=== PATIENT | male | born 1980 | race Caucasian/White ===

== ENCOUNTER 2019-04-10 01:27 | Emergency (ER) | payer MEDICAID ==
[~2019-04-10] VITALS: Ht 175.3 cm; Wt 102.3 kg
[~2019-04-10 01:27] MED LIST: CLIN150C8 PO; HYDR-4383 PO; NO HOME MEDS
[2019-04-10] MEDS ORDERED: naloxone 2mg/2ml inj ONE (01:31)
[2019-04-10] MEDS ORDERED: naloxone 2mg/2ml inj IM STA (01:50)
[2019-04-10] MEDS ORDERED: naloxone 2mg/2ml inj 2 MG in normal saline 500ml IV soln 498 ML IV SCH (02:10)
[2019-04-10 02:24] LABS: BASOPHILS % (AUTO) 0.6 % (0-1); EOSINOPHILS # (AUTO) 0.1 X10'3 (0-0.9); EOSINOPHILS % (AUTO) 1.3 % (0-6); HEMATOCRIT 42.8 % (42.0-52.0); HEMOGLOBIN 14.6 g/dl (14.0-17.9); LYMPHOCYTES # (AUTO) 1.6 X10'3 (1.1-4.8); LYMPHOCYTES % (AUTO) 18.3 % (21-51); MEAN CORPUSCULAR HEMOGLOBIN 30.7 PG (27.0-31.0); MEAN CORPUSCULAR HGB CONC 34.1 g/dL (33.0-36.5); MEAN PLATELET VOLUME 7.6 FL (7.4-10.4); MONOCYTES # (AUTO) 0.8 X10'3 (0-0.9); MONOCYTES % (AUTO) 9.7 % (2-12); NEUTROPHILS # (AUTO) 6.1 X10'3 (1.8-7.7); NEUTROPHILS % (AUTO) 70.1 % (42-75); PLATELET COUNT 254 X10'3 (140-440); RED BLOOD COUNT 4.76 X10'6 (4.70-6.10); RED CELL DISTRIBUTION WIDTH 13.7 % (11.5-14.5); WHITE BLOOD COUNT 8.7 X10'3 (4.5-11.0)
[2019-04-10 02:41] LABS: ALBUMIN 3.9 G/DL (3.4-5.0); ALBUMIN/GLOBULIN RATIO 1.1 (1.1-1.5); ALKALINE PHOSPHATASE 90 IU/L (46-116); ANION GAP 10 (8-16); ASPARTATE AMINO TRANSFERASE 705 U/L (10-37); BILIRUBIN,TOTAL 1.2 MG/DL (0.1-1.0); BLOOD UREA NITROGEN 25 MG/DL (7-18); BUN/CREATININE RATIO 18.9 (5.4-32.0); CALCIUM 7.8 MG/DL (8.5-10.1); CHLORIDE 108 MMOL/L (99-107); CREATININE 1.32 MG/DL (0.60-1.10); GLUCOSE 140 MG/DL (70-104); POTASSIUM 3.3 MMOL/L (3.5-5.1); SODIUM 146 MMOL/L (135-145); TOTAL CARBON DIOXIDE 28.4 MMOL/L (24-32); TOTAL PROTEIN 7.4 G/DL (6.4-8.2); eGFR 61 ML/MIN
[2019-04-10 02:42] LABS: ALANINE AMINOTRANSFERASE 1544 U/L (12-78)
[2019-04-10] MEDS ORDERED: pantoprazole 40 MG vial IV ONE (02:50)
[2019-04-10] MEDS ORDERED: normal saline 1000ML IV soln IVB ONE (02:50)
[2019-04-10] MEDS ORDERED: ondansetron/PF 4mg/2ml inj IV ONE (02:50)
[2019-04-10 03:01] LABS: ETHANOL 0.043 GM/DL (0.0-0.010); LIPASE 153 U/L (73-393)
--- NOTE | 2019-04-10 03:21 | NUR ---
NARCAN GTT CONTINUES INFUSING. PT FALLING ASLEEP REGULARLY BUT EASILY AWAKENS TO VOICE. FATHER AT BEDSIDE. SATS 92% ON 5 LITERS NC. 3 LITERS NS BOLUS ORDERED AND CURRENTLY INFUSING. PT GIVEN ADTL WARM BLANKETS.
[2019-04-10 04:00] LABS: ABG BASE EXCESS -4.6 mmol/L (-2.0-3.0); ABG HCO3 22.8 mmol/L (22.0-26.0); ABG OXYGEN SATURATION 88.5 % (95-98); ABG PCO2 (T) 51.2 mmHg (35.0-45.0); ABG PH (T) 7.267 (7.350-7.450); ABG PO2 (T) 61.6 mmHg (83-108); FCOHb 1.6 % (0.5-1.5); FLOW 5 L/min; FO2Hb 87.1 % (94-100); TOTAL HEMOGLOBIN 14.2 G/dl (14.0-17.9)
[2019-04-10 04:03] LABS: URINE AMPHETAMINE SCREEN POSITIVE (Neg); URINE BARBITUATE SCREEN NEGATIVE (Neg); URINE BENZODIAZEPINES SCREEN NEGATIVE (Neg); URINE CANNABINOID SCREEN POSITIVE (Neg); URINE COCAINE SCREEN NEGATIVE (Neg); URINE METHADONE SCREEN NEGATIVE (Neg); URINE OPIATE SCREEN POSITIVE (Neg); URINE PHENCYCLIDINE SCREEN NEGATIVE (Neg)
[2019-04-10] MEDS ORDERED: iohexol 350MG/ML 100ml bottle IV ONE (04:41)
[2019-04-10] MEDS ORDERED: azithromycin/NS 500mg/250ml 250 ML IV ONE (06:10)
[2019-04-10] MEDS ORDERED: CefTRIAXone 2gm/D5W 50ml 50 ML IV ONE (06:10)
[2019-04-10 08:01] LABS: ABG BASE EXCESS -5.4 mmol/L (-2.0-3.0); ABG HCO3 20.5 mmol/L (22.0-26.0); ABG OXYGEN SATURATION 83.5 % (95-98); ABG PCO2 (T) 41.5 mmHg (35.0-45.0); ABG PH (T) 7.312 (7.350-7.450); ABG PO2 (T) 48.6 mmHg (83-108); ALLEN'S TEST Positive; FMetHb 0.1 % (0.3-1.12); FO2Hb 82.6 % (94-100); TOTAL HEMOGLOBIN 15.6 G/dl (14.0-17.9)
[2019-04-10] MEDS ORDERED: FLU VACC QS2019-20 36MOS UP/PF 60 MCG/0.5 ML SYRINGE IMVAC ONE (08:10)
[2019-04-10] MEDS ORDERED: METR-159 PO (10:17)
[2019-04-10] MEDS ORDERED: AMOX500C2 PO (10:17)
[2019-04-10 10:41] VITALS: BP 131/61
[2019-04-11] MEDS ORDERED: FLU VACC QS2019-20 36MOS UP/PF 60 MCG/0.5 ML SYRINGE IMVAC ONE (08:10)
== END 2019-04-10 10:46 | disposition home or self-care (01) ==
LOC: ER 01:28
DX: J18.9 Pneumonia, unspecified organism (principal); F19.10 Other psychoactive substance abuse, uncomplicated; R09.02 Hypoxemia; R41.82 Altered mental status, unspecified; R10.13 Epigastric pain; F12.90 Cannabis use, unspecified, uncomplicated; F17.200 Nicotine dependence, unspecified, uncomplicated; Z56.0 Unemployment, unspecified
CPT/HCPCS: 36415; 36600; 71045; 71275; 80053; 80305; 80320; 82803; 83605; 83690; 84145; 84484; 85018; 85025; 87040; 87081; 93005; 94660; 96365; 96367; 96375; 96376; 99284; C9113; J0456; J0696; J2310; J2405; J7030; J7040; Q9967; Q2037

== ENCOUNTER 2019-05-09 00:53 | Emergency (ER) | payer MEDICAID, OTHER ==
[~2019-05-09] VITALS: Ht 175.3 cm; Wt 97.0 kg
[~2019-05-09 00:53] MED LIST changes: +AMOX500C2 PO; -CLIN150C8 PO; -HYDR-4383 PO
[2019-05-09 01:00] VITALS: BP 163/82
[2019-05-09] MEDS ORDERED: SULF1TAB49 PO (02:09)
[2019-05-09] MEDS ORDERED: sulfamethoxazole/trimethoprim DS (800/160mg) tablet PO ONE (02:10)
== END 2019-05-09 02:24 | disposition home or self-care (01) ==
LOC: ER 00:54
DX: L03.313 Cellulitis of chest wall (principal); F12.90 Cannabis use, unspecified, uncomplicated; F17.200 Nicotine dependence, unspecified, uncomplicated; Z79.2 Long term (current) use of antibiotics; Z56.0 Unemployment, unspecified
CPT/HCPCS: 87070; 87077; 87186; 99283

== ENCOUNTER 2019-06-19 22:17 | Emergency (ER) | payer MEDICAID ==
[~2019-06-19] VITALS: Ht 175.3 cm; Wt 95.5 kg
[~2019-06-19 22:17] MED LIST changes: -AMOX500C2 PO
[2019-06-19 22:37] VITALS: BP 159/80
[2019-06-19] MEDS ORDERED: MUPI22OI30 TOP (23:35)
[2019-06-19] MEDS ORDERED: DOXY100C76 PO (23:35)
== END 2019-06-19 23:55 | disposition home or self-care (01) ==
LOC: ER 22:18
DX: J32.8 Other chronic sinusitis (principal); F12.90 Cannabis use, unspecified, uncomplicated; Z56.0 Unemployment, unspecified
CPT/HCPCS: 99283

== ENCOUNTER 2019-09-22 08:29 | Emergency (ER) | payer MEDICAID ==
[~2019-09-22] VITALS: Ht 175.3 cm; Wt 98.0 kg
[2019-09-22] MEDS ORDERED: normal saline 1000ML IV soln IVB ONE (08:35)
--- NOTE | 2019-09-22 08:38 | NUR ---
Dr Juárezfs in at bedside for initial assessment. IO pulled from [facility].
--- NOTE | 2019-09-22 09:39 | NUR ---
Dr. Mckee stated hold on IV. Ok to give PO fluid and food.
[2019-09-22 11:11] VITALS: BP 165/110
== END 2019-09-22 11:14 | disposition home or self-care (01) ==
LOC: ER 08:29
DX: T40.1X1A Poisoning by heroin, accidental (unintentional), initial encounter (principal); F17.210 Nicotine dependence, cigarettes, uncomplicated; F12.90 Cannabis use, unspecified, uncomplicated; F11.90 Opioid use, unspecified, uncomplicated; Z72.89 Other problems related to lifestyle; Z86.14 Personal history of Methicillin resistant Staphylococcus aureus infection; Z59.0 Homelessness
CPT/HCPCS: 93005; 99283

== ENCOUNTER 2020-04-11 21:31 | Emergency (ER) | payer MEDICAID ==
[~2020-04-11] VITALS: Ht 180.3 cm; Wt 100.0 kg
[2020-04-11 21:34] VITALS: BP 125/89
[2020-04-11] MEDS ORDERED: ACYC-202 PO (23:14)
[2020-04-11] MEDS ORDERED: CefTRIAXone 250MG IM Kit w/LIDOcaine IM ONE (23:15)
[2020-04-11] MEDS ORDERED: azithromycin 250mg tablet PO ONE (23:15)
== END 2020-04-11 23:53 | disposition home or self-care (01) ==
LOC: ER 21:32
DX: A64 Unspecified sexually transmitted disease (principal); N48.89 Other specified disorders of penis; F12.90 Cannabis use, unspecified, uncomplicated; F11.90 Opioid use, unspecified, uncomplicated; Z86.14 Personal history of Methicillin resistant Staphylococcus aureus infection; Z72.89 Other problems related to lifestyle; Z56.0 Unemployment, unspecified; Z79.2 Long term (current) use of antibiotics
CPT/HCPCS: 96372; 99283; J0696

== ENCOUNTER 2020-08-06 12:25 | Emergency (ER) | payer MEDICAID ==
[~2020-08-06] VITALS: Ht 175.3 cm; Wt 100.0 kg
[2020-08-06 12:45] VITALS: BP 102/67
[2020-08-06] MEDS ORDERED: HYDROcodone/acetaminophen 10/325mg tab PO ONE (14:30)
[2020-08-06 15:02] LABS: BASOPHILS % (AUTO) 0.5 % (0-1); EOSINOPHILS # (AUTO) 0.2 X10'3 (0-0.9); EOSINOPHILS % (AUTO) 2.7 % (0-6); HEMATOCRIT 36.3 % (42.0-52.0); LYMPHOCYTES # (AUTO) 2.3 X10'3 (1.1-4.8); LYMPHOCYTES % (AUTO) 26.4 % (21-51); MEAN CORPUSCULAR HEMOGLOBIN 28.5 PG (27.0-31.0); MEAN CORPUSCULAR VOLUME 86.4 FL (78-98); MEAN PLATELET VOLUME 7.8 FL (7.4-10.4); MONOCYTES # (AUTO) 1.8 X10'3 (0-0.9); MONOCYTES % (AUTO) 20.3 % (2-12); NEUTROPHILS # (AUTO) 4.4 X10'3 (1.8-7.7); NEUTROPHILS % (AUTO) 50.1 % (42-75); PLATELET COUNT 236 X10'3 (140-440); RED BLOOD COUNT 4.21 X10'6 (4.70-6.10); RED CELL DISTRIBUTION WIDTH 17.6 % (11.5-14.5); WHITE BLOOD COUNT 8.8 X10'3 (4.5-11.0)
[2020-08-06 15:11] LABS: ALANINE AMINOTRANSFERASE 39 U/L (12-78); ALBUMIN 2.9 G/DL (3.4-5.0); ALBUMIN/GLOBULIN RATIO 0.5 (1.1-1.5); ALKALINE PHOSPHATASE 202 IU/L (46-116); ANION GAP 7 (8-16); ASPARTATE AMINO TRANSFERASE 40 U/L (10-37); BILIRUBIN,TOTAL 0.5 MG/DL (0.1-1.0); BLOOD UREA NITROGEN 18 MG/DL (7-18); BUN/CREATININE RATIO 17.8 (5.4-32.0); CALCIUM 8.5 MG/DL (8.5-10.1); CHLORIDE 103 MMOL/L (99-107); CREATININE 1.01 MG/DL (0.60-1.10); POTASSIUM 4.8 MMOL/L (3.5-5.1); SODIUM 139 MMOL/L (135-145); TOTAL CARBON DIOXIDE 28.7 MMOL/L (24-32); TOTAL PROTEIN 9.1 G/DL (6.4-8.2); eGFR 82 ML/MIN
[2020-08-06 15:12] LABS: GLUCOSE 102 MG/DL (70-104)
[2020-08-06] MEDS ORDERED: dexamethasone sod phosphate 10mg/ml inj IV STA (16:33)
[2020-08-06 17:35] LABS: ANISOCYTOSIS 1+; PLATELET ESTIMATE NORMAL; TOTAL CELLS COUNTED 100
[2020-08-06 17:40] LABS: STOMATOCYTES 1+
[2020-08-06] MEDS ORDERED: HYDR-3965 PO ×2 (18:17→18:20)
[2020-08-06] MEDS ORDERED: PRED20TA PO (18:17)
--- NOTE | 2020-08-06 18:51 | NUR ---
pt has orders for decadron iv, but no iv in place and reportedly is difficult iv placement. Dr. Smith updated of this and rodjake changed to IM. Pts' girlfriend Arielle at bedside for DC instructions and is pts transportation home.
--- NOTE | 2020-08-10 10:04 | NUR ---
pt. is posiive for RPR. called home number that is disconnected. called mariana the II left message for pt. to call us. pt. needs to have pcn g 2.4 millions units IM. pt. nees to have this for a total of 3 doses 1 week apart.
--- NOTE | 2020-08-10 10:49 | NUR ---
pt. called back. i told him he was positive for syphillis. pt. was informed that his partner if he has one also needs to be treated. pt. is comming back today to get the first of 3 doses of pcn g shot im.
== END 2020-08-06 18:54 | disposition home or self-care (01) ==
LOC: ER 12:25
DX: S50.11XA Contusion of right forearm, initial encounter (principal); I77.6 Arteritis, unspecified; F17.200 Nicotine dependence, unspecified, uncomplicated; F12.90 Cannabis use, unspecified, uncomplicated; Z86.14 Personal history of Methicillin resistant Staphylococcus aureus infection; Z72.89 Other problems related to lifestyle; Z56.0 Unemployment, unspecified; Z98.890 Other specified postprocedural states; Z79.899 Other long term (current) drug therapy
CPT/HCPCS: 29125; 36415; 70450; 73110; 80053; 83605; 85007; 85025; 85651; 86140; 86592; 96374; 99285; J1100

== ENCOUNTER 2020-08-10 16:05 | Emergency (ER) | payer MEDICAID ==
[~2020-08-10] VITALS: Ht 177.8 cm; Wt 100.0 kg
[~2020-08-10 16:05] MED LIST changes: +HYDR-3965 PO; +PRED20TA PO
[2020-08-10 16:19] VITALS: BP 149/57
--- NOTE | 2020-08-10 16:54 | NUR ---
PATIENT WAS CALLED TO RETURN TO ER FOR POSITIVE RPR RESULT THAT WILL REQUIRE ANTIBIOTIC ADMINISTRATION.
[2020-08-10] MEDS ORDERED: ibuprofen tablet 400 MG TABLET PO ONE (17:30)
[2020-08-10] MEDS ORDERED: PENICILLIN G BENZATHINE 2,400,000 UNIT/4 ML SYRINGE IM ONE (17:50)
== END 2020-08-10 18:20 | disposition home or self-care (01) ==
LOC: ER 16:06
DX: A53.9 Syphilis, unspecified (principal); G43.909 Migraine, unspecified, not intractable, without status migrainosus; F12.90 Cannabis use, unspecified, uncomplicated; F11.90 Opioid use, unspecified, uncomplicated; Z86.14 Personal history of Methicillin resistant Staphylococcus aureus infection; Z72.89 Other problems related to lifestyle; Z98.890 Other specified postprocedural states; Z56.0 Unemployment, unspecified; Z79.899 Other long term (current) drug therapy
CPT/HCPCS: 36415; 86592; 96372; 99283; J0561

== ENCOUNTER 2020-12-09 13:13 | Emergency (ER) | payer MEDICAID ==
[~2020-12-09] VITALS: Ht 177.8 cm; Wt 102.3 kg
[~2020-12-09 13:13] MED LIST changes: -HYDR-3965 PO; -PRED20TA PO
[2020-12-09] MEDS ORDERED: PRED20TA PO (13:40)
[2020-12-09] MEDS ORDERED: ALBU6.7H9 INH (13:40)
[2020-12-09 14:07] VITALS: BP 136/73
== END 2020-12-09 14:46 | disposition home or self-care (01) ==
LOC: ER 13:14
DX: U07.1 COVID-19 (principal); J06.9 Acute upper respiratory infection, unspecified; R06.02 Shortness of breath; R51.9 Headache, unspecified; R05 Cough; F12.90 Cannabis use, unspecified, uncomplicated; F11.90 Opioid use, unspecified, uncomplicated; Z86.14 Personal history of Methicillin resistant Staphylococcus aureus infection; Z98.890 Other specified postprocedural states; Z72.89 Other problems related to lifestyle; Z56.0 Unemployment, unspecified; Z79.899 Other long term (current) drug therapy
CPT/HCPCS: 36415; 99283; U0003; U0005

== ENCOUNTER 2021-02-13 11:04 | Emergency (ER) | payer MEDICAID ==
[~2021-02-13] VITALS: Ht 177.8 cm; Wt 104.5 kg
[~2021-02-13 11:04] MED LIST changes: +ALBU6.7H9 INH
[2021-02-13 11:12] VITALS: BP 118/76
[2021-02-13] MEDS ORDERED: CEPH-585 PO (11:46)
[2021-02-13] MEDS ORDERED: HYDR-3972 PO (11:46)
== END 2021-02-13 13:38 | disposition home or self-care (01) ==
LOC: ER 11:05
DX: S42.001A Fracture of unspecified part of right clavicle, initial encounter for closed fracture (principal); M79.5 Residual foreign body in soft tissue; R07.81 Pleurodynia; F12.90 Cannabis use, unspecified, uncomplicated; F11.90 Opioid use, unspecified, uncomplicated; Z87.81 Personal history of (healed) traumatic fracture; Z86.14 Personal history of Methicillin resistant Staphylococcus aureus infection; Z56.0 Unemployment, unspecified; V87.8XXA Person injured in other specified noncollision transport accidents involving motor vehicle (traffic), initial encounter; Y93.89 Activity, other specified; Y92.89 Other specified places as the place of occurrence of the external cause; Y99.8 Other external cause status
CPT/HCPCS: 99283

== ENCOUNTER 2021-02-15 19:35 | Emergency (ER) | payer MEDICAID ==
[~2021-02-15] VITALS: Ht 177.8 cm; Wt 104.5 kg
[~2021-02-15 19:35] MED LIST changes: +CEPH-585 PO; +HYDR-3972 PO
[2021-02-15 19:44] VITALS: BP 136/88
== END 2021-02-15 23:19 | disposition left against medical advice (07) ==
LOC: ER 19:35
DX: R07.81 Pleurodynia (principal); Z53.21 Procedure and treatment not carried out due to patient leaving prior to being seen by health care provider

== ENCOUNTER 2022-03-27 15:04 | Emergency (ER) | payer MEDICAID ==
[~2022-03-27] VITALS: Ht 177.8 cm; Wt 104.0 kg
[~2022-03-27 15:04] MED LIST changes: +ALBU6.7H14 INH; -ALBU6.7H9 INH; -CEPH-585 PO; -HYDR-3972 PO
[2022-03-27 15:39] VITALS: BP 143/86
[2022-03-27] MEDS ORDERED: ondansetron 4mg rapidly disintigrating tab PO ONE (16:25)
[2022-03-27] MEDS ORDERED: ketorolac trometh. 30mg/ml inj. IM ONE (16:25)
[2022-03-27] MEDS ORDERED: HYDROcodone/acetaminophen 5mg/325mg tablet PO ONE (16:25)
[2022-03-27] MEDS ORDERED: HYDR-3965 PO (16:55)
[2022-03-27] MEDS ORDERED: ONDA4TAB12 PO (16:55)
== END 2022-03-27 17:08 | disposition home or self-care (01) ==
LOC: ER 15:06
DX: M25.521 Pain in right elbow (principal); F12.90 Cannabis use, unspecified, uncomplicated; F11.90 Opioid use, unspecified, uncomplicated; Z86.14 Personal history of Methicillin resistant Staphylococcus aureus infection; Z72.89 Other problems related to lifestyle; Z98.890 Other specified postprocedural states; Z56.0 Unemployment, unspecified; Z79.899 Other long term (current) drug therapy
CPT/HCPCS: 73080; 96372; 99283; J1885

== ENCOUNTER 2023-07-17 17:27 | Emergency (ER) | payer MEDICAID ==
[~2023-07-17] VITALS: Ht 177.8 cm; Wt 108.4 kg
[~2023-07-17 17:27] MED LIST changes: +ONDA4TAB12 PO
[2023-07-17 17:32] VITALS: BP 168/140; PULSE 102; RESP 16; TEMP 98.2; O2SAT 95
[2023-07-17] MEDS: sulfamethoxazole/trimethoprim DS (800/160mg) tablet PO ONE (18:30)
[2023-07-17] MEDS: ibuprofen tablet 400 MG TABLET PO ONE (18:30)
[2023-07-17] MEDS ORDERED: IBUP-1984 PO (18:34)
[2023-07-17] MEDS ORDERED: SULF1TAB45 PO (18:34)
== END 2023-07-17 19:08 | disposition home or self-care (01) ==
LOC: ER 17:28
DX: S61.230A Puncture wound without foreign body of right index finger without damage to nail, initial encounter (principal); F12.90 Cannabis use, unspecified, uncomplicated; Z79.899 Other long term (current) drug therapy; Z79.2 Long term (current) use of antibiotics; X58.XXXA Exposure to other specified factors, initial encounter; Y93.89 Activity, other specified; Y92.89 Other specified places as the place of occurrence of the external cause; Y99.8 Other external cause status
CPT/HCPCS: 73140; 99283

== ENCOUNTER 2023-10-28 00:35 | Emergency (ER) | payer MEDICAID ==
[~2023-10-28] VITALS: Ht 177.8 cm; Wt 115.0 kg
[~2023-10-28 00:35] MED LIST changes: +ONDA-243 PO; -ONDA4TAB12 PO
[2023-10-28 00:38] VITALS: TEMP 98.9
[2023-10-28] MEDS ORDERED: ONDA-245 PO (01:27)
[2023-10-28] MEDS ORDERED: DOXY-356 PO (01:27)
[2023-10-28] MEDS ORDERED: CEPH-585 PO (01:27)
[2023-10-28] MEDS: ibuprofen tablet 400 MG TABLET PO ONE (01:31)
[2023-10-28] MEDS: DOXYCYCLINE 100MG CAPSULE PO STA (01:31)
[2023-10-28] MEDS: cephalexin 250mg capsule PO ONE (01:32)
[2023-10-28] MEDS: acetaminophen 325mg tablet PO ONE (01:32)
[2023-10-28] MEDS: ondansetron 4mg rapidly disintigrating tab PO ONE (01:33)
[2023-10-28] MEDS: ceFAZolin 1gm IM kit IM ONE (01:34)
[2023-10-28 01:51] VITALS: BP 109/93; PULSE 97; RESP 18; O2SAT 99
== END 2023-10-28 01:53 | disposition home or self-care (01) ==
LOC: ER 00:35
DX: L03.115 Cellulitis of right lower limb (principal); F12.90 Cannabis use, unspecified, uncomplicated; F11.90 Opioid use, unspecified, uncomplicated; Z72.89 Other problems related to lifestyle; Z56.0 Unemployment, unspecified; Z98.890 Other specified postprocedural states
CPT/HCPCS: 96372; 99284; J0690

== ENCOUNTER 2025-02-02 22:25 | Emergency (ER) | payer MEDICAID ==
[~2025-02-02] VITALS: Ht 177.8 cm; Wt 113.6 kg
[~2025-02-02 22:25] MED LIST changes: +ONDA-245 PO
--- NOTE | 2025-02-02 22:40 | Physician Documentation ---
History of Present Illness ~ Chief Complaint: Finger pain Stated Complaint: FINGER PAIN Time Seen by MD: 22:35 Primary Medical Doctor: None HPI This is a 44-year-old gentleman who is currently on doxycycline for management of syphilis presents for evaluation of pain, swelling of the 3rd digit of his left hand. It has been present there for two days. He has been able to squeeze a small amount of pus out of it. No particular trigger, denies any specific trauma. Denies any foreign object introduction. No palliating or aggravating factors. Denies any fever or chills. Able to range the finger. Tetanus within 5 years: Yes (2016) Medication Reconciliation Allergies: Coded Allergies: No Known Allergies (Unverified , 10/28/23) Scheduled Albuterol Sulfate (Proventil Hfa), 2 PUFFS INH Q6H ONDANSETRON ODT 4mg tablet (Ondansetron Odt), 1 TABLET PO Q6H Ondansetron 8mg ODT (Ondansetron Odt), 1 TAB PO Q6H Miscellaneous Medications Home Med List (No Home Medications), (Reported) Past Medical History Past Medical History: Extremity Fracture, MRSA Abscess Past Surgical History: orthopedic surgeries Alcohol Use: Occasionally Drug Use: marijuana, heroin Lives In: Home Occupation: unemployed Review of Systems ROS 10 point review of systems was performed and unless noted above in HPI is negative for acute process/complaint. Physical Exam Vital Signs: Temperature: 97.2, Source: Temporal, Heart Rate: 111, Respiratory Rate: 20, BP: 145/100, Pulse Oximetry: 99, Weight: 113.600 Oxygen Flow Rate: 0 Physical Exam Physical examination: GENERAL: Awake, alert, oriented, GCS 15, no apparent distress, non-toxic appearing, answers questions, follows commands appropriately. HEENT: Atraumatic, normocephalic, pupils equal, extraocular muscles intact Active gross movements, sclerae anicteric, mucus membranes moist, no stridor. NECK: Midline, no JVD CARDIOVASCULAR: Good skin perfusion without evidence of pallor, mottling. PULMONARY: Nonlabored, symmetric chest rise, no audible wheezing, no accessory muscle use, no respiratory distress, speaking in full sentences. GASTROINTESTINAL: Not distended. NEUROLOGIC: Lucid with normal mental status. Normal facial symmetry. Moves all extremities symmetrically and with purpose. No truncal ataxia. Speech is fluid without evidence of dysarthria or aphasia, no focal deficits appreciated. EXTREMITIES: Acute deformities Skin: warm, dry PSYCHIATRIC: Normal affect, normal insight, normal concentration. Focused exam: [There is a small amount of swelling, erythema to the distal interphalangeal joint area of the 3rd digit of the left hand. Some calor noted. The area is localized to the radial aspect of the skin overlying the joint and dorsal aspect of the skin overlying the joint. Negative Kanavel signs. Preserved sensation. Cap refill less than 2 seconds. Full range of motion not limited by pain. There is an umbilication on the radial aspect of the digit, patient states that this is the area where the pus had come out. There was no a ppreciable fluctuance at this time. No crepitus. No violaceous changes.] Progress Results/Orders Results/Orders Vital Signs 02/02/25 22:27 Temp 97.2 Pulse 111 Resp 20 B/P (MAP) 145/100 Pulse Ox 99 O2 Flow Rate 0 Medical Decision Making Additional information obtaine: N/A Findings Facility Status: ED Holds, E process The plan was discussed with the patient, who demonstrates clear understanding of the plan and is in agreement with the plan unless otherwise noted in the chart. All questions have been answered, all concerns were addressed unless otherwise documented. I was available throughout their ED stay for frequent reassessment and questions. Differential Diagnoses (considered and possible or likely): [Finger cellulitis, finger abscess, less likely infected joint given full range of motion, unlikely to be necrotizing fasciitis or osteomyelitis at this time. This is not consistent with a syphilitic lesion in the finger.] ??Differential Diagnoses (considered and unlikely, not requiring evaluation currently): [No evidence of traumatic injury] MDM Data Please see HPI for the following: Independent Historians and external Records Review. Historian: [Patient] Independent Historians: ?[None] Medication Management: [Reviewed medication list] Social History and determinants: [Reviewed] Please see the body of the note for the following: Any independent interpretat ions of ECG, imaging studies. All vitals signs/haemodynamics, ordered tests were independently reviewed and interpreted by myself. Nursing triage complaint and vitals reviewed, additional nursing notes were reviewed as available and I agree unless otherwise noted or documented in contradiction in the chart Vital Signs: Independently reviewed Labs: Independently interpreted Imaging: Independently interpreted Old Medical Records: Independently reviewed, see HPI for relevant summary and information Additionally notably showing: [Hemodynamically stable] Tests considered but not ordered include: [Hematologic workup and imaging has been considered but does not appear to be necessary given clinical nature of diagnosis] Social Determinants of Health Impact: Patient was evaluated in [facility], or [facility] [place] to healthcare due to below par ratio of patient to medical providers. [] Comorbid Conditions Impacting Present Evaluation and Care/Treatment: [Current sy philis treatment] Management Discussions with other Healthcare Providers: [None] Treatment and Disposition Medication Management (Given or considered): [Initial dose of antibiotics]. See EMR for details Consideration for Hospitalization/Escalation/Deescalation of Care: Admission for observation has been considered, [however the patient is able to tolerate p.o., their symptoms are controlled, they are able to rely on oral medications, and their chief complaint/diagnosis can be managed on outpatient basis.] ?ED Course:?[No clinical deterioration. Patient was advised to continue to take his doxycycline incomplete the course] ?Shared decision making:?[Patient is hemodynamically stable for discharge home with follow with their primary care provider. [ ] Specific and cautious return precautions provided and discussed with full understanding. Any incidental findings were also discussed and follow up recommendations given. [] All questions answered. Patient/family were able to verbalize back return precautions. Patient/family agree to plan. Copies of imaging and laboratory studies were provided.] Code status:?FULL Please see the full Electronic Medical Record for full details of nursing documentation, medications list, other records of complete past medical history and conditions, vital signs, laboratory studies, and any radiologic study interpretations by radiologists. Portions of this note were completed using [employer] dictation software and as a result there may exist minor errors in spelling. I have reviewed elements of past family and social history and agree as included in note. General Diff Dx:Considerations: Unlikely: Other Shoulder Diff Dx:Consideration: Unlikely: Other Elbow Diff Dx:Considerations: Unlikely: Other Wrist Diff Dx:Considerations: Unlikely: Other Hand Diff Dx:Considerations: Unlikely: Other Finger Diff Dx:Considerations: Unlikely: Other Departure Time of Disposition: 22:42 Disposition: 01 HOME / SELF CARE / HOMELESS Impression: Primary Impression: Cellulitis of finger Condition: Stable Discharge Instructions: Cellulitis, Adult Referrals: NO PRIMARY CARE PROVIDER (PCP) Prescriptions Sulfamethoxazole/Trimethoprim (Bactrim Ds Tablet) 800 Mg-160 Mg Tablet 1 TAB PO Q12H for 10 Days, #20 TAB Prov: JUNIOR LIRA DO 02/02/25 Education Educated: Patient Educated regarding: diagnosis, treatment, prognosis, need for follow up Signature Scribe Signature: No scribe Attestation: Date: Feb 02, 2025 Time: 22:42 This note accurately reflects clinical decisions, work performed by myself, Junior Lira, JUNIOR OHARA DO Feb 02, 2025 22:40
[2025-02-02] MEDS ORDERED: SULF1TAB49 PO (22:41)
[2025-02-02] MEDS: sulfamethoxazole/trimethoprim DS (800/160mg) tablet PO ONE (22:57)
[2025-02-02] MEDS: ibuprofen tablet 400 MG TABLET PO ONE (23:03)
[2025-02-02 23:08] VITALS: BP 144/99; PULSE 109; RESP 20; TEMP 98.6; O2SAT 99
== END 2025-02-02 23:09 | disposition home or self-care (01) ==
LOC: ER 22:25
DX: L03.012 Cellulitis of left finger (principal); F12.90 Cannabis use, unspecified, uncomplicated; F11.90 Opioid use, unspecified, uncomplicated; Z79.899 Other long term (current) drug therapy; Z56.0 Unemployment, unspecified; Z98.890 Other specified postprocedural states
CPT/HCPCS: 99284

== ENCOUNTER 2025-02-22 21:28 | Emergency (ER) | payer MEDICAID ==
[~2025-02-22] VITALS: Ht 177.8 cm; Wt 113.0 kg
[2025-02-22 21:51] VITALS: BP 137/91; PULSE 100; O2SAT 98
[2025-02-22 22:49] LABS: INFLUENZA TYPE A ANTIGEN RAPID NEGATIVE (Negative); INFLUENZA TYPE B ANTIGEN RAPID NEGATIVE (Negative)
[2025-02-23 00:05] VITALS: RESP 18
[2025-02-23] MEDS: amox tr/potassium clavulanate 875/125mg TAB PO ONE (00:05)
[2025-02-23] MEDS: ketorolac trometh 30MG/ML vial 30 MG/ML VIAL IM ONE (00:05)
[2025-02-23] MEDS ORDERED: AMOX-117 PO (00:13)
--- NOTE | 2025-02-23 00:13 | Physician Documentation ---
History of Present Illness ~ Chief Complaint: Flu Symptoms Stated Complaint: FEVER Time Seen by MD: 23:31 Primary Medical Doctor: None HPI Patient is a very pleasant 44-year-old male that presents to the emergency department for evaluation of fever chills headache significantly sore throat x2 days. Patient reports difficulty swallowing. Denies any airway difficulty shortness of breath chest pain nausea vomiting diarrhea at this time. Medication Reconciliation Allergies: Coded Allergies: No Known Allergies (Unverified , 02/22/25) Scheduled Albuterol Sulfate (Proventil Hfa), 2 PUFFS INH Q6H ONDANSETRON ODT 4mg tablet (Ondansetron Odt), 1 TABLET PO Q6H Ondansetron 8mg ODT (Ondansetron Odt), 1 TAB PO Q6H Miscellaneous Medications Home Med List (No Home Medications), (Reported) Past Medical History Past Medical History: Extremity Fracture, MRSA Abscess Past Surgical History: orthopedic surgeries Alcohol Use: Occasionally Drug Use: marijuana, heroin Lives In: Home Occupation: unemployed Review of Systems ROS As stated above in the HPI, otherwise all systems are reviewed and negative. Physical Exam Vital Signs: Temperature: 100.3, Source: Oral, Heart Rate: 100, Respiratory Rate: 18, BP: 137/91, Pulse Oximetry: 98, Weight: 113.000 Physical Exam VITALS: Reviewed and as above. GENERAL: Alert, no apparent distress. HEENT: Normocephalic, atraumatic, PERRL, EOMI, dry mucosa, tonsillar enlargement accompanied by significant erythema and exudate noted to the posterior oropharynx and tonsils bilaterally. RESPIRATORY: Lungs clear, normal breath sounds, no respiratory distress. CHEST: No accessory muscle use, no retractions CV: Regular rate, rhythm, no edema, no murmur, No: JVD GI: Soft, non-tender, bowels sounds present, no rebound, guarding, or rigidity BACK: No CVA tenderness, or swelling MUSCULOSKELETAL No deformities, no edema SKIN: Warm and dry, no rash NEURO: Oriented x4, No motor or sensory deficit PSYCH: Normal mood and affect, no agitation Progress Results/Orders Results/Orders Orders - ELIJAH THOMPSON Covid19 Binax Poc Result Entry (02/22/25 22:01) Completed Orders - ELIJAH THOMPSON Ketorolac Trometh 30mg/Ml Vial (Toradol (02/22/25 23:45) Acetaminophen 325mg Tablet (Tylenol Tabl (02/22/25 23:45) Amox Tr/Potassium Clavulanate (Augmentin (02/22/25 23:45) Medications Received in ER Medications (Trade) Dose Ordered Sig/Yoli Route PRN Reason Start Time Stop Time Status Last Admin Dose Admin (Toradol inj. 30mg/ml) 30 mg ONCE ONCE IM 02/22/25 23:45 02/22/25 23:46 DC 02/23/25 00:05 30 MG (Tylenol tablet) 975 mg ONCE ONCE PO 02/22/25 23:45 02/22/25 23:46 DC 02/23/25 00:05 975 MG (Augmentin 875-125mg tablet) 1 tab ONCE ONCE PO 02/22/25 23:45 02/22/25 23:46 DC 02/23/25 00:05 1 TAB Vital Signs 02/22/25 02/23/25 21:51 00:05 Temp 100.3 Pulse 100 Resp 20 18 B/P (MAP) 137/91 Pulse Ox 98 Laboratory Tests Test 02/22/25 22:00 Influenza Type A Antigen Negative Influenza Type B Antigen Negative SARS-CoV-2 Antigen (Rapid) Negative Medical Decision Making Additional information obtaine: other Findings 44-year-old male presented with acute onset fever, chills, headache, and severe sore throat with odynophagia for two days. Physical exam revealed tonsillar exudate, significant tonsillar swelling, and erythema of the posterior oropharynx, consistent with clinical criteria for group A streptococcal (GAS) pharyngitis. No cough or other viral symptoms reported. Medical decision-making: Diagnosis: Clinical suspicion for GAS pharyngitis is high based on Centor criteria (fever, tonsillar exudate, absence of cough, age >15). Empiric treatment is appropriate in adults with classic findings, especially when rapid testing is unavailable or delayed. Treatment: Patient received a dose of ketorolac and acetaminophen for analgesia in the ED. First dose of antibiotics administered; prescription provided for completion of a 10-day course, per Infectious Diseases Society of [place] (IDSA) guidelines. Penicillin or amoxicillin is preferred unless allergy; alternatives include first-generation cephalosporins, clindamycin, or macrolides if indicated. Adjunctive therapy: NSAIDs and acetaminophen are recommended for symptomatic relief; corticosteroids are not indicated. Complications and follow-up: Antibiotics modestly shorten symptom duration and reduce risk of suppurative complications (e.g., peritonsillar abscess), though most cases are self-limited. Patient instructed to follow up with primary care and return to ED for worsening symptoms, new concerning findings (e.g., difficulty swallowing, drooling, neck swelling), or lack of improvement after 5 days of antibiotics. Disposition: Stable for discharge. Prescription for antibiotics to be picked up in the morning. Supportive care with acetaminophen and NSAIDs as needed. Summary: This patient meets clinical criteria for GAS pharyngitis and is being managed according to evidence-based guidelines, with appropriate antibiotic therapy and symptomatic management. Close follow-up and return precautions provided. Differential Dx:Considerations: Include: CVA, Dehydration, Drug toxicity, Electrolyte imbalance, Influenza, Meningitis, Mycardial infarction, Pneumonia, Pneumonitis, Pulmonary embolus, Pyelonephritis, Respiratory failure, Sepsis, UTI, Viral Syndrome, Other Departure Disposition: HOME / SELF CARE / HOMELESS Impression: Primary Impression: Strep Pharyngitis Condition: Stable Discharge Instructions: Pharyngitis, [id number] Additional Instructions: You have been diagnosed with strep throat (streptococcal pharyngitis), a bacterial infection that causes a sore throat, fever, and swollen tonsils. You received your first dose of antibiotics, as well as medicine for pain and fever, in the emergency department. What to do next: Antibiotics: sample room supervisor your prescribed antibiotics in the morning and take them exactly as directed. Finish the entire course, even if you start to feel better. This helps make sure the infection is fully treated and prevents complications. Pain and fever: You may use acetaminophen (Tylenol) or nonsteroidal anti- inflammatory drugs (like ibuprofen) to help with throat pain and fever. These medicines can be taken as needed, following the instructions on the package. Other comfort measures: Drinking cool or warm fluids, using throat lozenges, and gargling with salt water may help soothe your throat. Rest as much as possible. Avoid spreading germs: Wash your hands often and avoid sharing eating utensils, cups, or towels with others until you have been on antibiotics for at least 24 hours. What to expect: Most people start to feel better within 2448 hours after starting antibiotics. Sore throat and fever should improve over the next few days. Antibiotics help prevent rare but serious complications, such as abscesses or rheumatic fever. When to seek help: Return to the emergency department or contact your doctor if you have any of the following: Trouble breathing, swallowing, or opening your mouth Severe neck swelling or pain High fever that does not improve No improvement after 5 days of antibiotics New symptoms that concern you Follow-up: Schedule a follow-up visit with your primary care provider as discussed. If you have any questions or concerns, do not hesitate to reach out to your healthcare provider. Referrals: NO PRIMARY CARE PROVIDER (PCP) Prescriptions Amox Tr/Potassium Clavulanate (Augmentin 875-125 Tablet) 1 Each Tablet 1 TAB PO Q12H for 10 Days, #20 TAB Prov: ELIJAH THOMPSON 02/23/25 Education Educated: Patient Educated regarding: diagnosis, treatment, need for follow up Signature Scribe Signature: A Attestation: Scribed for Elijah Thompson by ERIKA Harvey . 02/23/25 00:14 ELIJAH THOMPSON Feb 23, 2025 00:13
[2025-02-23 00:18] VITALS: TEMP 99.2
== END 2025-02-23 00:19 | disposition home or self-care (01) ==
LOC: ER 21:28
DX: J02.0 Streptococcal pharyngitis (principal); F12.90 Cannabis use, unspecified, uncomplicated; F11.90 Opioid use, unspecified, uncomplicated; Z86.14 Personal history of Methicillin resistant Staphylococcus aureus infection; Z20.822 Contact with and (suspected) exposure to COVID-19; Z72.89 Other problems related to lifestyle; Z56.0 Unemployment, unspecified; Z98.890 Other specified postprocedural states
CPT/HCPCS: 36415; 87804; 87811; 96372; 99283; J1885